=== PATIENT | male | born 1965 | race Hispanic/Latino ===

== ENCOUNTER 2017-10-17 17:22 | Inpatient (IN) | payer BC ==
[2017-10-17 17:31] VITALS: BMI 28.7
[2017-10-17] MEDS ORDERED: Alum-Mag Hydrox-Simethicone Susp (30 mL) PO STA (17:38)
--- NOTE | 2017-10-17 18:06 | ED PDOC ---
Arrival/HPI - General Chief Complaint: Chest Pain Time Seen by Provider: 10/17/17 17:32 Historian: Patient - History of Present Illness Narrative History of Present Illness (Text): 10/17/17 17:57 Taran Perez is a 52 year old male, whose past medical history includes CAD, diabetes, and hypertension, who presents to the emergency department complaining of epigastric discomfort at rest today. Patient describes that his symptoms had spread into his chest in a gurgling sensation and is now sensing a sharp, pulsating pain at the left side of his chest. Patient says that his symptoms are moderate in severity, however he is concerned because of his history of coronary stents. Patient states that he saw his PMD today and was referred to the emergency department. Patient denies any radiation of pain, arm pain, or any other complaints at this time. Time/Duration: 1-3 hours Symptom Onset: Gradual Symptom Course: Unchanged Activities at Onset: Light Context: Home Past Medical History - Provider Review Nursing Documentation Reviewed: Yes - Infectious Disease Hx of Infectious Diseases: None - Tetanus Immunization Tetanus Immunization: Unknown - Cardiac Other/Comment: cardiac stent - Pulmonary Hx Respiratory Disorders: No - Neurological Hx Neurological Disorder: No Other/Comment: numbness/tingling from knees to toes post back sx - HEENT Hx HEENT Disorder: Yes (wears glasses) - Renal Hx Renal Disorder: No - Endocrine/Metabolic Hx Diabetes Mellitus Type 2: Yes - Hematological/Oncological Hx Blood Disorders: No Hx Anemia: No (pt denies) - Integumentary Hx Dermatological Disorder: No - Musculoskeletal/Rheumatological Hx Falls: No - Gastrointestinal Hx Gastrointestinal Disorders: No - Genitourinary/Gynecological Hx Genitourinary Disorders: No - Psychiatric Hx Emotional Abuse: No Hx Physical Abuse: No Hx Substance Use: No - Surgical History Hx Appendectomy: Yes Hx Cardiac Catheterization: Yes Hx Cholecystectomy: Yes Hx Coronary Stent: Yes Other/Comment: Back surgery.Lumbar fusion - Anesthesia Hx Anesthesia Reactions: No Hx Malignant Hyperthermia: No - Suicidal Assessment Feels Threatened In Home Enviroment: No Family/Social History - Physician Review Nursing Documentation Reviewed: Yes Family/Social History: No Known Family HX Smoking Status: Never Smoked Hx Alcohol Use: No Hx Substance Use: No Hx Substance Use Treatment: No Allergies/Home Meds Allergies/Adverse Reactions: Allergies No Known Allergies Allergy (Verified 02/26/15 14:34) Home Medications: Home Meds Medication Instructions Recorded Confirmed Metformin HCl [Metformin] 1,000 mg PO BID 04/25/12 10/17/17 Aspirin [Ecotrin] 81 mg PO DAILY 10/17/17 10/17/17 Glipizide [Glipizide ER] 10 mg PO BID 10/17/17 10/17/17 SITagliptin [Januvia] 100 mg PO DAILY 10/17/17 10/17/17 Review of Systems - Physician Review All systems were reviewed & negative as marked: Yes - Review of Systems Constitutional: absent: Fevers, Night Sweats Eyes: absent: Vision Changes ENT: absent: Hearing Changes Respiratory: absent: SOB, Cough Cardiovascular: Chest Pain Gastrointestinal: Abdominal Pain (abdominal discomfort). absent: Diarrhea, Nausea, Vomiting Genitourinary Male: absent: Dysuria, Frequency Musculoskeletal: absent: Arthralgias Skin: absent: Rash, Pruritis Neurological: absent: Headache, Dizziness Endocrine: absent: Diaphoresis Hemo/Lymphatic: absent: Adenopathy Psychiatric: absent: Anxiety, Depression Physical Exam Vital Signs Reviewed: Yes Vital Signs Temp Pulse Resp BP Pulse Ox 10/17/17 18:34 73 22 110/73 97 10/17/17 17:22 99.1 F 80 18 133/78 97 Temperature: Afebrile Blood Pressure: Normal Pulse: Regular Respiratory Rate: Normal Appearance: Positive for: Well-Appearing, Non-Toxic, Comfortable Pain Distress: None Mental Status: Positive for: Alert and Oriented X 3 - Systems Exam Head: Present: Atraumatic, Normocephalic Pupils: Present: PERRL Extroacular Muscles: Present: EOMI Conjunctiva: Present: Normal Mouth: Present: Moist Mucous Membranes Neck: Present: Normal Range of Motion Respiratory/Chest: Present: Clear to Auscultation, Good Air Exchange. No: Respiratory Distress, Accessory Muscle Use Cardiovascular: Present: Regular Rate and Rhythm, Normal S1, S2. No: Murmurs Abdomen: Present: Normal Bowel Sounds. No: Tenderness, Distention, Peritoneal Signs Back: Present: Normal Inspection Upper Extremity: Present: Normal Inspection. No: Cyanosis, Edema Lower Extremity: Present: Normal Inspection. No: Edema Neurological: Present: GCS=15, CN II-XII Intact, Speech Normal Skin: Present: Warm, Dry, Normal Color. No: Rashes Psychiatric: Present: Alert, Oriented x 3, Normal Insight, Normal Concentration Medical Decision Making ED Course and Treatment: 10/17/17 18:07 Impression: 52 year old male complaining of epigastric discomfort and chest pain today. Plan: -- EKG -- Labs -- Maalox -- Reassess and disposition Progress Notes: - Lab Interpretations Lab Results: 10/17/17 17:30 10/17/17 17:30 Lab Results 10/17/17 17:30: Sodium 139, Potassium 4.1, Chloride 101, Carbon Dioxide 25, Anion Gap 18, BUN 22 H, Creatinine 0.8, Est GFR ( Amer) > 60, Est GFR ( Non-Af Amer) > 60, Random Glucose 141 H, Calcium 10.1, Total Bilirubin 0.8, AST 29, ALT 39, Alkaline Phosphatase 66, Troponin I < 0.01, Total Protein 7.7, Albumin 4.5, Globulin 3.2, Albumin/Globulin Ratio 1.4 10/17/17 17:30: WBC 6.9 D, RBC 5.40, Hgb 15.9, Hct 44.7, MCV 82.8, MCH 29.4, MCHC 35.6, RDW 13.4, Plt Count 184, MPV 9.4, Gran % 68.0, Lymph % (Auto) 24.9, Dickenson % (Auto) 5.4, Eos % (Auto) 1.6, Baso % (Auto) 0.1, Gran # 4.68, Lymph # ( Auto) 1.7, Dickenson # (Auto) 0.4, Eos # (Auto) 0.1, Baso # (Auto) 0.01 I have reviewed the lab results: Yes - RAD Interpretation Radiology Orders: 10/17/17 18:46 CHEST PORTABLE [RAD] Stat - Medication Orders Current Medication Orders: Discontinued Medications Al Hydrox/Mg Hydrox/Simethicone (Maalox Plus 30 Ml) 30 ml PO STAT STA Stop: 10/17/17 17:39 Last Admin: 10/17/17 18:12 Dose: 30 ml - Scribe Statement The provider has reviewed the documentation as recorded by the Smithibcarly[facility] Fam Provider Scribe Attestation: All medical record entries made by the Scribe were at my direction and personally dictated by me. I have reviewed the chart and agree that the record accurately reflects my personal performance of the history, physical exam, medical decision making, and the department course for this patient. I have also personally directed, reviewed, and agree with the discharge instructions and disposition. Disposition/Present on Arrival - Present on Arrival Any Indicators Present on Arrival: No History of DVT/PE: No History of Uncontrolled Diabetes: No Urinary Catheter: No History of Decub. Ulcer: No History Surgical Site Infection Following: None - Disposition Have Diagnosis and Disposition been Completed?: Yes Diagnosis: Chest pain, Coronary insufficiency Disposition: HOSPITALIZED Disposition Time: 18:50 Patient Plan: Observation Condition: STABLE Discharge Instructions (ExitCare): Chest Pain (ED) Referrals: Nura MORALES,Haresh Bennett MD [Primary Care Provider] - Follow up with primary Forms: [employer] ([place])
[2017-10-17 18:25] LABS: BASO # 0.01 K/mm3 (0.0-2.0); BASO % 0.1 % (0.0-3.0); EOS # 0.1 (0.0-0.7); EOS % 1.6 % (1.5-5.0); GRAN # 4.68 (1.4-6.5); HEMOGLOBIN 15.9 g/dL (14.0-18.0); LYMPH # 1.7 (1.2-3.4); LYMPH % 24.9 % (22.0-35.0); MEAN CELL VOLUME 82.8 fl (80.0-105.0); MEAN CORPUSCULAR HEMOGLOBIN 29.4 pg (25.0-35.0); MEAN CORPUSCULAR HGB CONC 35.6 g/dl (31.0-37.0); MEAN PLATELET VOLUME 9.4 fl (7.0-11.0); MONO # 0.4 (0.1-0.6); MONO % 5.4 % (1.0-6.0); RBC 5.4 10^6/uL (3.5-6.1); RED CELL DISTRIBUTION WIDTH 13.4 % (11.5-14.5); WHITE BLOOD COUNT 6.9 10^3/ul (4.5-11.0)
[2017-10-17 18:29] LABS: ALB/GLOB RATIO 1.4 (1.1-1.8); ALBUMIN 4.5 g/dL (3.0-4.8); ALT/SGPT 39 U/L (7-56); AST/SGOT 29 U/L (17-59); BLOOD UREA NITROGEN 22 mg/dL (7-21); CALCIUM 10.1 mg/dL (8.4-10.5); GFR AFRICAN-AMERICAN > 60; GFR NON-AFRICAN AMERICAN > 60
[2017-10-17 18:40] LABS: TROPONIN I < 0.01 ng/mL
[2017-10-17] MEDS ORDERED: Sodium Chloride 0.9% 1,000 ML IV SCH (19:15)
[2017-10-17] MEDS ORDERED: Influenza Vaccine 60 mcg/0.5 mL SYR (4YR UP) IM ONE (22:24)
[2017-10-18 06:31] LABS: BASO # 0.01 K/mm3 (0.0-2.0); BASO % 0.2 % (0.0-3.0); EOS # 0.2 (0.0-0.7); EOS % 3.6 % (1.5-5.0); GRAN # 3.05 (1.4-6.5); GRAN % 57.8 % (50.0-68.0); HEMOGLOBIN 15.2 g/dL (14.0-18.0); LYMPH # 1.6 (1.2-3.4); LYMPH % 29.5 % (22.0-35.0); MEAN CELL VOLUME 83.5 fl (80.0-105.0); MEAN CORPUSCULAR HEMOGLOBIN 29.1 pg (25.0-35.0); MEAN CORPUSCULAR HGB CONC 34.9 g/dl (31.0-37.0); MEAN PLATELET VOLUME 9.6 fl (7.0-11.0); MONO # 0.5 (0.1-0.6); MONO % 8.9 % (1.0-6.0); RBC 5.22 10^6/uL (3.5-6.1); RED CELL DISTRIBUTION WIDTH 13.4 % (11.5-14.5); WHITE BLOOD COUNT 5.3 10^3/ul (4.5-11.0)
[2017-10-18 06:46] LABS: ALB/GLOB RATIO 1.4 (1.1-1.8); ALBUMIN 3.9 g/dL (3.0-4.8); ALT/SGPT 40 U/L (7-56); AST/SGOT 28 U/L (17-59); BLOOD UREA NITROGEN 19 mg/dL (7-21); CALCIUM 9.4 mg/dL (8.4-10.5); GFR AFRICAN-AMERICAN > 60; GFR NON-AFRICAN AMERICAN > 60; HDL CHOLESTEROL 33 mg/dL (29-60)
[2017-10-18 06:54] LABS: TROPONIN I < 0.01 ng/mL
[2017-10-18 06:57] LABS: LDL CHOLESTEROL 99 mg/dL (0-129)
[2017-10-18] MEDS ORDERED: Enoxaparin 100 mg Syringe SC ONE (07:47)
--- NOTE | 2017-10-18 08:25 | CARD ---
APPROVED REPORT EKG Measurement Heart [id number] <Conclusion> Normal sinus rhythm Normal ECG
--- NOTE | 2017-10-18 09:57 | RAD ---
HISTORY: cp COMPARISON: 02/26/2015 FINDINGS: LUNGS: No active pulmonary disease. PLEURA: No significant pleural effusion identified, no pneumothorax apparent. CARDIOVASCULAR: Normal. OSSEOUS STRUCTURES: No significant abnormalities. VISUALIZED UPPER ABDOMEN: Normal. OTHER FINDINGS: None. IMPRESSION: No active disease.
--- NOTE | 2017-10-18 10:47 | CON ---
DATE: 10/18/2017 CARDIOLOGY CONSULTATION HISTORY OF PRESENT ILLNESS: The patient is a 52-year-old male with a history of PTCA and stents in [place] and suffers from hypercholesterolemia, who presents with substernal chest discomfort occurring at rest. The patient is still with a few intermittent episodes. No shortness of breath noted. Negative diabetes mellitus. Negative hypertension. SOCIAL HISTORY: The patient does not smoke. REVIEW OF SYSTEMS: Fourteen-point review of systems was reviewed in detail. No additional cardiac symptoms were noted. PHYSICAL EXAMINATION: VITAL SIGNS: Blood pressure is 120/71, the heart rate is in the 60s. NECK: Negative JVD. LUNGS: Without rales. HEART: Reveals S1, S2. EXTREMITIES: Without edema. LABORATORY DATA: EKG is unremarkable. Troponins are negative x2. Hemoglobin is normal. Glucose is 153. IMPRESSION: 1. Unstable angina. 2. Coronary artery disease. 3. History of percutaneous transluminal coronary angioplasty and stent. 4. Borderline diabetes mellitus. 5. Hypercholesterolemia. PLAN: Given these findings, I have discussed the therapeutic options with the patient in detail. We will obtain another troponin later today. We will start the patient on Plavix. The patient is agreeable to cardiac catheterization in the morning. Abdulkadir Rivera MD
[2017-10-18] MEDS: Insulin Reg-MEDIUM-Coverage SC SCH ×3 (11:57→22:18)
--- NOTE | 2017-10-18 19:51 | HP ---
HISTORY OF PRESENT ILLNESS: The patient is a 52 year old man with a past medical history of CAD s/p PCI with stent placement, hyperlipidemia, NIDDM and diet-controlled HTN who presented for evaluation of a 1-2 week history of intermittent, substernal squeezing chest tightness. The patient reports that approximately 2 weeks ago he experienced a "pin pricking" sensation to his left costal margin which radiated below his left breast. Over the course of the next several days he reported intermittent squeezing and a "spasming" sensation to his chest that occurred sporadically and was not associated with exertion. He denied palpitations, diaphoresis or dyspnea associated with the symptoms. Given the increase in frequency of his symptoms and his known underlying CAD, he presented to his PMD for evaluation. Physical examination at his PMD's office disclosed no abnormalities but due to the nature of his symptoms and his medical history, he was advised to go to the ED for admission for further cardiac workup. Upon arrival to the ED he was noted to be afebrile and hemodynamically stable. An initial EKG was unremarkable and an initial troponin was also negative. The patient was admitted to the telemetry jaramillo for continued monitoring and for evaluation by his tube sizer operator Dr. Rivera. PAST MEDICAL HISTORY: As per HPI, also lumbosacral radiculopathy secondary to degenerative disk disease. PAST SURGICAL HISTORY: Diskectomy and laminectomy with spinal fusion. ALLERGIES: NKDA. MEDICATIONS: Aspirin 81 mg p.o. daily, Lipitor 40 mg p.o. daily, Metformin 1000 mg p.o. b.i.d., Januvia 100 mg p.o. daily, Glipizide 10 mg p.o. b.i.d. FAMILY HISTORY: Noncontributory. SOCIAL HISTORY: The patient reports a former smoking history, but quit several years ago. He reports social alcohol use and denies illicit drug abuse. REVIEW OF SYSTEMS: A 14-point review of systems is negative except as per HPI. PHYSICAL EXAMINATION VITAL SIGNS: Temperature 97.6, pulse 64, blood pressure 120/71, respiratory rate 18, oxygen saturation 97% on room air. GENERAL: No apparent distress. HEENT: PERRL. EOMI. No scleral icterus. No conjunctival pallor. NECK: Supple with full range of motion. No JVD. No bruits. LUNGS: Clear to auscultation. CARDIOVASCULAR: Regular rate and rhythm. Normal S1 and S2. No murmurs. ABDOMEN: Normal active bowel sounds. Soft, nontender, nondistended. EXTREMITIES: No edema. NEUROLOGIC: Awake, alert, and oriented x3. No focal motor deficits. LABORATORY DATA: CBC reviewed and unremarkable. CMP reviewed and unremarkable. Troponin less than 0.01 x2 sets. Cholesterol 163, triglycerides 138, LDL 99, HDL 33. ASSESSMENT: The patient is a 52 year old man with a past medical history of CAD s/p PCI with stent placement, hyperlipidemia, NIDDM and diet-controlled hypertension who presented for evaluation of 1-2 week history of substernal chest discomfort and was admitted for management of unstable angina. PLAN: 1. Unstable angina. The patient has had 2 unremarkable cardiac enzymes. He does endorse persistent chest discomfort. After discussion with Dr. Rivera, the patient will be scheduled for cardiac catheterization tomorrow. He will be loaded with Plavix 300 mg and Lovenox 90 mg. Continue aspirin 81 mg p.o. daily and start Plavix 75 mg p.o. daily. 2. CAD s/p PCI with stent placement. Continue with care as per #1. The patient is pending cardiac catheterization tomorrow morning. 3. Hyperlipidemia. The patient is on Simvastatin at home however this is not on formulary. Start Lipitor 40 mg p.o. daily. 4. Hypertension, diet-controlled. Blood pressure remains controlled off antihypertensives. 5. NIDDM. Start medium dose insulin sliding scale and fingersticks before every meal and at bedtime. Resume metformin 1000 mg p.o. b.i.d. 6. Prophylaxis. GI prophylaxis not indicated as the patient is eating. DVT prophylaxis not indicated as patient is ambulatory. CODE STATUS: Full code. Haresh Lyman MD [facility]
[2017-10-19 06:21] LABS: BASO # 0.02 K/mm3 (0.0-2.0); BASO % 0.4 % (0.0-3.0); EOS # 0.2 (0.0-0.7); EOS % 4.3 % (1.5-5.0); GRAN # 2.91 (1.4-6.5); GRAN % 56.4 % (50.0-68.0); HEMOGLOBIN 14.9 g/dL (14.0-18.0); LYMPH # 1.6 (1.2-3.4); LYMPH % 31.7 % (22.0-35.0); MEAN CELL VOLUME 83.8 fl (80.0-105.0); MEAN CORPUSCULAR HEMOGLOBIN 29.1 pg (25.0-35.0); MEAN CORPUSCULAR HGB CONC 34.7 g/dl (31.0-37.0); MEAN PLATELET VOLUME 9.3 fl (7.0-11.0); MONO # 0.4 (0.1-0.6); MONO % 7.2 % (1.0-6.0); RBC 5.12 10^6/uL (3.5-6.1); RED CELL DISTRIBUTION WIDTH 13.3 % (11.5-14.5); WHITE BLOOD COUNT 5.2 10^3/ul (4.5-11.0)
[2017-10-19 06:59] LABS: ALB/GLOB RATIO 1.4 (1.1-1.8); ALBUMIN 3.9 g/dL (3.0-4.8); ALT/SGPT 40 U/L (7-56); AST/SGOT 28 U/L (17-59); BLOOD UREA NITROGEN 20 mg/dL (7-21); CALCIUM 9.2 mg/dL (8.4-10.5); GFR AFRICAN-AMERICAN > 60; GFR NON-AFRICAN AMERICAN > 60
[2017-10-19] MEDS: Insulin Reg-MEDIUM-Coverage SC SCH ×4 (07:32→22:15)
[2017-10-19] MEDS ORDERED: Midazolam 2 MG/2 ML VIAL ONE ×2 (10:13→12:14)
[2017-10-19] MEDS ORDERED: Lidocaine 2% Inj (20ml) ONE (10:13)
[2017-10-19] MEDS ORDERED: Iohexol 350mgl/ml 50 ML ONE (10:14)
[2017-10-19] MEDS ORDERED: HEPARIN SODIUM/NS 2,000 ML IV ONE (10:14)
[2017-10-19] MEDS ORDERED: Iodixanol 320 MG/ML 200 ML BOTTLE IV ONE (10:14)
[2017-10-19] MEDS ORDERED: Sodium Chloride 0.9% 1,000 ML IV SCH (13:15)
--- NOTE | 2017-10-19 19:29 | PN ---
SUBJECTIVE: The patient was seen and examined at bedside on the telemetry jaramillo. No acute events overnight. He remains afebrile and hemodynamically stable. This morning he reports persistent chest discomfort that is unchanged in nature and is pending cardiac catheterization with Dr. Rivera. OBJECTIVE: VITAL SIGNS: Temperature 98.5, pulse 57, blood pressure 107/58, respiratory rate 18, oxygen saturation 98% on room air. GENERAL: In no apparent distress. HEENT: PERRL, EOMI. No scleral icterus. No conjunctival pallor. NECK: Supple with full range of motion. No JVD. No bruits. LUNGS: Clear to auscultation. CARDIOVASCULAR: Regular rate and rhythm. Normal S1 and S2. No murmurs. ABDOMEN: Normoactive bowel sounds. Soft, nontender and nondistended. EXTREMITIES: No edema. NEUROLOGIC: Awake, alert and oriented x3. No focal motor deficits. LABORATORY DATA: CBC reviewed and unremarkable. CMP reviewed and unremarkable. ASSESSMENT: The patient is a 52 year old man with a past medical history of CAD s/p PCI with stent placement, hyperlipidemia, NIDDM and diet-controlled hypertension who presented for evaluation of a 1-2 week history of substernal chest discomfort and who was admitted for management of unstable angina and is presently pending cardiac catheterization. PLAN 1. Unstable angina. The patient remains with unchanged chest discomfort and is pending cardiac catheterization with Dr. Rivera. Continue Aspirin 81 mg p.o. daily and Plavix 75 mg p.o. daily. 2. CAD s/p PCI with stent placement. Continue with care as per #1. Additionally, continue Lipitor 40 mg p.o. daily. 3. Hyperlipidemia. Continue Lipitor 40 mg p.o. daily. 4. Ekr-drjidmv-courdogiw diabetes mellitus. Continue with medium-dose insulin sliding scale and Metformin 1000 mg p.o. b.i.d. 5. Hypertension, diet controlled. Blood pressure remains satisfactory. 6. Prophylaxis. GI prophylaxis not indicated as the patient is eating. DVT prophylaxis not indicated as the patient is ambulatory. CODE STATUS: Full code. Haresh Lyman MD [facility]
--- NOTE | 2017-10-19 21:47 | CARDCATH ---
PROCEDURE DATE: 10/19/2017 CARDIAC CATHETERIZATION AND PTCA HISTORY: The patient is a 52-year-old male, who presents with recurrent substernal angina including some episodes at rest. The patient's past medical history includes a history of multivessel PTCA in the past. He suffers from diabetes mellitus as well as hypercholesterolemia. The patient had previous stents placed in [place] in the past. Because of his progressive symptoms, cardiac catheterization was recommended. PROCEDURE: Left heart catheterization with coronary arteriography and left ventriculogram followed by PTCA and stent of the circumflex artery and diagonal vessel of the LAD with drug-eluting stents. The right femoral artery was cannulated with 6-[place] sheath. There were no complications. I performed moderate sedation, which included the presence of an independent trained observer that assisted in monitoring the patient's level of consciousness and physiologic status. After administration of Versed and fentanyl, my intra service time was 30 minutes. The findings on catheterization revealed a left ventricle that was preserved, estimated ejection fraction of 55%. His coronary anatomy revealed a right dominant circulation. The RCA revealed multiple stents that were patent. No critical lesions were noted. Left main artery was unremarkable. The circumflex artery revealed a 99% stenosis in the midportion. The LAD was diffusely diseased with multiple patent stents. However, in the midportion, there was an eccentric 60-70% stenosis noted. At the takeoff of the lesion, there was a diagonal vessel, which showed a 99% stenosis. The patient was started on intravenous Angiomax. Under fluoroscopic guide, the guiding catheter was placed in the ostium of the left main artery. An 0.014 ATW wire was used to cross the lesion in the circumflex artery. A 2.0 balloon was utilized to predilate the lesion. A 3.5 x 12 mm drug-eluting stent was placed and deployed at 14 atmospheres of pressure. Repeat coronary arteriography revealed an excellent result with no residual stenosis. An ATW wire was then placed into the LAD and into the diagonal vessel past the critical lesion. A 2.0 balloon was utilized to predilate the lesion. A 2.5 x 12 mm drug-eluting stent was placed and deployed at 11 atmospheres of pressure. After balloon deflation and removal, repeat coronary arteriography revealed an excellent result with no residual stenosis and [place] III flow. The patient tolerated the procedure well. Angio-Seal was used to close the femoral artery site. In summary, the procedure was successful for PTCA and stent of a critically stenosed circumflex artery with a drug-eluting stent. Successful PTCA and stent of diagonal vessel with a drug-eluting stent. Cardiac catheterization reveals normal LV function. Cardiac catheterization reveals patent stents in all three vessels including new lesions in the circumflex artery and diagonal vessel and LAD. Given these findings, the patient will need to remain on aspirin indefinitely and Plavix for at least a year and undergo a strict cardiac risk reduction program. We will bring him back next week for PTCA and stent of the LAD. Abdulkadir Rivera MD
--- NOTE | 2017-10-19 23:23 | CP.PCM.PN ---
Subjective - Date & Time of Evaluation Date of Evaluation: 10/19/17 Time of Evaluation: 23:23 - Subjective Subjective: Patient was seen at bedside. He complained of chest heaviness for 40 minutes, no radiation, was in left parasternal area, no nausea, sweating, palpitation or sob. He is S/P cardiac cath. Had drug eluting stent placed in circumflex , diagonal vesse. LAD has stenosis and needs stent placement next week. This 52 year old white male was admitted with substernal squeezing chest pain. Has PMH of NIDDM, HLD, CAD, HTN. Objective - Vital Signs/Intake and Output Vital Signs (last 24 hours): Temp Pulse Resp BP Pulse Ox 97.7 F 72 18 138/74 98 10/19/17 18:23 10/19/17 18:23 10/19/17 18:23 10/19/17 18:23 10/19/17 06:00 - Medications Medications: Current Medications Aspirin (Ecotrin) 81 mg PO DAILY [facility] Atorvastatin Calcium (Lipitor) 40 mg PO DAILY [facility] Last Admin: 10/19/17 16:57 Dose: 40 mg Clopidogrel Bisulfate (Plavix) 75 mg PO DAILY [facility] Last Admin: 10/19/17 10:04 Dose: Not Given Insulin Human Regular (Humulin R Med) 0 units SC ACHS [facility] PRN Reason: Protocol Last Admin: 10/19/17 16:57 Dose: 3 units Metformin HCl (Glucophage) 1,000 mg PO BID [facility] Last Admin: 10/19/17 17:00 Dose: Not Given Tramadol HCl (Ultram) 50 mg PO Q6 PRN PRN Reason: Pain, moderate (4-7) Last Admin: 10/19/17 14:01 Dose: 50 mg - Labs Labs: Most Recent Lab Values WBC 5.2 10^3/ul (4.5-11.0) 10/19/17 05:30 RBC 5.12 10^6/uL (3.5-6.1) 10/19/17 05:30 Hgb 14.9 g/dL (14.0-18.0) 10/19/17 05:30 Hct 42.9 % (42.0-52.0) 10/19/17 05:30 MCV 83.8 fl (80.0-105.0) 10/19/17 05:30 MCH 29.1 pg (25.0-35.0) 10/19/17 05:30 MCHC 34.7 g/dl (31.0-37.0) 10/19/17 05:30 RDW 13.3 % (11.5-14.5) 10/19/17 05:30 Plt Count 169 10^3/uL (120.0-450.0) 10/19/17 05:30 MPV 9.3 fl (7.0-11.0) 10/19/17 05:30 Gran % 56.4 % (50.0-68.0) 10/19/17 05:30 Lymph % (Auto) 31.7 % (22.0-35.0) 10/19/17 05:30 [place] % (Auto) 7.2 % (1.0-6.0) H 10/19/17 05:30 Eos % (Auto) 4.3 % (1.5-5.0) 10/19/17 05:30 Baso % (Auto) 0.4 % (0.0-3.0) 10/19/17 05:30 Gran # 2.91 (1.4-6.5) 10/19/17 05:30 Lymph # (Auto) 1.6 (1.2-3.4) 10/19/17 05:30 [place] # (Auto) 0.4 (0.1-0.6) 10/19/17 05:30 Eos # (Auto) 0.2 (0.0-0.7) 10/19/17 05:30 Baso # (Auto) 0.02 K/mm3 (0.0-2.0) 10/19/17 05:30 Sodium 138 mmol/L (132-148) 10/19/17 05:30 Potassium 4.0 mmol/L (3.6-5.0) 10/19/17 05:30 Chloride 101 mmol/L (98-107) 10/19/17 05:30 Carbon Dioxide 26 mmol/L (21-33) 10/19/17 05:30 Anion Gap 15 (10-20) 10/19/17 05:30 BUN 20 mg/dL (7-21) 10/19/17 05:30 Creatinine 0.9 mg/dl (0.8-1.5) 10/19/17 05:30 Est GFR ( Amer) > 60 10/19/17 05:30 Est GFR (Non-Af Amer) > 60 10/19/17 05:30 POC Glucose (mg/dL) 242 mg/dL (65-110) H 10/19/17 21:32 Random Glucose 204 mg/dL (70-110) H 10/19/17 05:30 Hemoglobin A1c 7.5 % (4.2-6.5) H 10/18/17 05:15 Calcium 9.2 mg/dL (8.4-10.5) 10/19/17 05:30 Total Bilirubin 0.7 mg/dL (0.2-1.3) 10/19/17 05:30 AST 28 U/L (17-59) 10/19/17 05:30 ALT 40 U/L (7-56) 10/19/17 05:30 Alkaline Phosphatase 68 U/L (38-126) 10/19/17 05:30 Troponin I 0.20 ng/mL H* D 10/19/17 22:40 Total Protein 6.6 g/dL (5.8-8.3) 10/19/17 05:30 Albumin 3.9 g/dL (3.0-4.8) 10/19/17 05:30 Globulin 2.8 gm/dL 10/19/17 05:30 Albumin/Globulin Ratio 1.4 (1.1-1.8) 10/19/17 05:30 Triglycerides 138 mg/dL (35-160) 10/18/17 05:15 Cholesterol 163 mg/dL (130-200) 10/18/17 05:15 LDL Cholesterol Direct 99 mg/dL (0-129) 10/18/17 05:15 HDL Cholesterol 33 mg/dL (29-60) 10/18/17 05:15 - Constitutional Appears: Well, No Acute Distress - Head Exam Head Exam: ATRAUMATIC, NORMAL INSPECTION, NORMOCEPHALIC - Eye Exam Eye Exam: Normal appearance - ENT Exam ENT Exam: Normal External Ear Exam - Neck Exam Neck Exam: Normal Inspection - Respiratory Exam Respiratory Exam: NORMAL BREATHING PATTERN - Cardiovascular Exam Cardiovascular Exam: REGULAR RHYTHM, +S1 (Normal.), +S2 (Normal.). absent: JVD - GI/Abdominal Exam GI & Abdominal Exam: absent: Distended - Rectal Exam Rectal Exam: Deferred - Extremities Exam Extremities Exam: Normal Inspection - Back Exam Back Exam: NORMAL INSPECTION - Neurological Exam Neurological Exam: Alert, Awake, Oriented x3 - Psychiatric Exam Psychiatric exam: Normal Affect, Normal Mood - Skin Skin Exam: Normal Color Assessment and Plan - Assessment and Plan (Free Text) Assessment: Chest pain. ACS. CAD. S/P cardiac catheterization. S/P Drug Eluting stent placement in Circumflex and diagonal vessel. LAD stenosis. HTN. HLD. NIDDM. Plan: EKG---->No acute changes. QIII. Troponin---> 0.20.---S/P catheterization. --- New ischemic, infarct event? SL NTG. Oxygen. 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 Protonix. Morphine sulfate prn. Placed call to x 2.
[2017-10-20] MEDS ORDERED: Pantoprazole 40 mg EC Tab PO ONE (00:49)
[2017-10-20] MEDS ORDERED: Morphine 4 mg/ml ISec IVP STA (02:11)
[2017-10-20 06:11] LABS: BASO # 0.01 K/mm3 (0.0-2.0); BASO % 0.2 % (0.0-3.0); EOS # 0.2 (0.0-0.7); EOS % 4.2 % (1.5-5.0); GRAN # 3.21 (1.4-6.5); GRAN % 55.9 % (50.0-68.0); LYMPH # 1.9 (1.2-3.4); LYMPH % 32.9 % (22.0-35.0); MEAN CELL VOLUME 83.5 fl (80.0-105.0); MEAN CORPUSCULAR HEMOGLOBIN 29.1 pg (25.0-35.0); MEAN CORPUSCULAR HGB CONC 34.8 g/dl (31.0-37.0); MEAN PLATELET VOLUME 9.2 fl (7.0-11.0); MONO # 0.4 (0.1-0.6); MONO % 6.8 % (1.0-6.0); RBC 5.16 10^6/uL (3.5-6.1); RED CELL DISTRIBUTION WIDTH 13.2 % (11.5-14.5); WHITE BLOOD COUNT 5.7 10^3/ul (4.5-11.0)
[2017-10-20 06:47] LABS: ALB/GLOB RATIO 1.3 (1.1-1.8); ALBUMIN 3.9 g/dL (3.0-4.8); ALT/SGPT 44 U/L (7-56); AST/SGOT 46 U/L (17-59); BLOOD UREA NITROGEN 15 mg/dL (7-21); CALCIUM 9.2 mg/dL (8.4-10.5); GFR AFRICAN-AMERICAN > 60; GFR NON-AFRICAN AMERICAN > 60
[2017-10-20] MEDS ORDERED: Nitroglycerin 2% Ointment Foilpak UD TOP PRN (08:19)
[2017-10-20] MEDS: Insulin Reg-MEDIUM-Coverage SC SCH ×4 (09:08→21:24)
--- NOTE | 2017-10-20 09:13 | CARD ---
APPROVED REPORT EKG Measurement Heart [id number] [place] [id number] <Conclusion> Sinus rhythm with 1st degree AV block Otherwise normal ECG
--- NOTE | 2017-10-20 09:46 | CARD ---
APPROVED REPORT EKG Measurement Heart [id number] [place] [id number] <Conclusion> Normal sinus rhythm Normal ECG
--- NOTE | 2017-10-20 10:02 | CARD ---
APPROVED REPORT EKG Measurement Heart [id number] [place] 196P49 [id number] <Conclusion> Normal sinus rhythm Normal ECG
[2017-10-20] MEDS ORDERED: Lidocaine 2% Inj (20ml) ONE (10:03)
[2017-10-20] MEDS ORDERED: Phenylephrine 10 mg/ml Inj ONE (10:03)
[2017-10-20] MEDS ORDERED: Iodixanol 320 MG/ML 200 ML BOTTLE IV ONE (10:04)
[2017-10-20] MEDS ORDERED: Iodixanol 320 MG/ML 100 ML BOTTLE IV ONE (10:04)
[2017-10-20] MEDS ORDERED: Nitroglycerin 50mg in D5W 50 MG/250 ML BOTTLE IV ONE (10:04)
[2017-10-20] MEDS ORDERED: Midazolam 2 MG/2 ML VIAL ONE ×2 (10:04→10:49)
[2017-10-20] MEDS ORDERED: Iohexol 350mgl/ml 50 ML ONE (10:04)
[2017-10-20] MEDS ORDERED: HEPARIN SODIUM/NS 2,000 ML IV ONE (10:05)
[2017-10-20] MEDS ORDERED: Adenosine 90 mg/30mL IV ONE (10:06)
--- NOTE | 2017-10-20 11:07 | PN ---
DATE: 10/20/2017 CARDIOLOGY FOLLOWUP SUBJECTIVE: The patient states he had chest pain last night. EKG was done, which showed no acute changes. The troponin was 0.2. Given these findings, we will move his scheduled angioplasty of the LAD from Monday to today. We will bring him down for cardiac catheterization to visualize his stents placed yesterday and plan on stenting his mid LAD. Abdulkadir Rivera MD
--- NOTE | 2017-10-20 11:08 | CARD ---
APPROVED REPORT EKG Measurement Heart [id number] [place] 198P38 [id number] <Conclusion> Normal sinus rhythm Q III, Small Q AVF.
[2017-10-20] MEDS ORDERED: Sodium Chloride 0.9% 1,000 ML IV SCH (12:30)
--- NOTE | 2017-10-20 13:26 | PN ---
DATE: SUBJECTIVE: The patient is lying in bed, in room 260, bed 2, has no complaints at this very moment. The patient did experience chest pain yesterday evening and night, received multiple doses of nitroglycerine, also some IV pain medications. PHYSICAL EXAMINATION: VITAL SIGNS: Currently: Temperature of 98.6, pulse rate of 60, blood pressure 124/80, respiratory rate of 20 with an O2 saturation of 96% on room air. HEENT: NITA. EOMI. NECK: Supple with full range of motion. There are no bruits present. LUNGS: Clear bilaterally. HEART: Shows a regular rate and rhythm. ABDOMEN: Soft, it is nontender. There is no organomegaly. Bowel sounds are normoactive. EXTREMITIES: Show no deformities and no edema with a poor range of motion. NEUROLOGIC: There are no focal motor deficits. LABORATORY DATA: H and H 15.0 and 43.1. SMA-23 is normal with the exception of a glucose 180. Of note, the patient had a cath with stent placements and given his chest pain yesterday evening and at night, the patient will be kept in our hospital. Patient is scheduled for repeat cath and stents on Monday. DIAGNOSES: 1. Coronary artery disease. 2. Diabetes mellitus. Omkar Lyman MD
[2017-10-20] MEDS ORDERED: Oxycodone/Acetaminophen 5/325 mg Tab PO PRN (15:28)
--- NOTE | 2017-10-20 15:31 | CARD ---
APPROVED REPORT EKG Measurement Heart [id number] [place] 192P59 [id number] <Conclusion> Normal sinus rhythm Normal ECG
[2017-10-20 17:41] VITALS: RESP 18
--- NOTE | 2017-10-20 21:07 | CARDCATH ---
PROCEDURE: PTCA and stent of an LAD and diagonal vessel. The left femoral artery was cannulated with a 6-Turkmen sheath. There were no complications. Initial coronary arteriography revealed RCA that was a dominant vessel with no critical lesions. The stents that were placed in the circumflex artery as well as in the diagonal vessel were patent. The LAD in the midportion at the takeoff of the diagonal vessel revealed an eccentric 70% stenoses. The patient was started on intravenous Angiomax. On the fluoroscopic guide, 2 ATW wires were placed, one in the diagonal vessel, one in the LAD. A 3.0 x 9 mm drug-eluting stent was placed and deployed at 14 ounces of pressure in the LAD. After balloon deflation removal, postdilatation was performed with a 3.5 balloon. There was pinching of the ostium of the diagonal vessel from the stent. The wire was then brought back and rewired through the stent into the diagonal vessel. A 2.0 followed by 2.5 balloon was then utilized to dilate the ostium of the diagonal vessel with an excellent result. Postdilatation in the LAD was performed with a 3.5 balloon. Angio-Seal was used to close the femoral artery site. The patient tolerated the procedure well. In summary, the procedure was successful for PTCA and stent of a critically stenosed mid LAD stenoses as well as the ostium of the diagonal vessel which took off from the LAD stent. Coronary arteriography revealed patent stents in the circumflex artery and the diagonal vessel that were placed yesterday. Given these findings, the patient will remain on aspirin indefinitely and Plavix for least a year and undergo a strict cardiac risk reduction program. Abdulkadir Rivera MD
[2017-10-21 06:22] VITALS: TEMP 98.3
[2017-10-21 07:18] LABS: BASO # 0.01 K/mm3 (0.0-2.0); BASO % 0.2 % (0.0-3.0); EOS # 0.2 (0.0-0.7); EOS % 3.6 % (1.5-5.0); GRAN # 3.74 (1.4-6.5); GRAN % 63.9 % (50.0-68.0); HEMOGLOBIN 15.1 g/dL (14.0-18.0); LYMPH # 1.4 (1.2-3.4); LYMPH % 24.6 % (22.0-35.0); MEAN CELL VOLUME 83.7 fl (80.0-105.0); MEAN CORPUSCULAR HEMOGLOBIN 29.3 pg (25.0-35.0); MEAN PLATELET VOLUME 9.6 fl (7.0-11.0); MONO # 0.5 (0.1-0.6); MONO % 7.7 % (1.0-6.0); RBC 5.15 10^6/uL (3.5-6.1); RED CELL DISTRIBUTION WIDTH 13.1 % (11.5-14.5); WHITE BLOOD COUNT 5.9 10^3/ul (4.5-11.0)
[2017-10-21 07:30] LABS: ALB/GLOB RATIO 1.3 (1.1-1.8); ALBUMIN 3.9 g/dL (3.0-4.8); ALT/SGPT 46 U/L (7-56); AST/SGOT 31 U/L (17-59); BLOOD UREA NITROGEN 16 mg/dL (7-21); CALCIUM 9.3 mg/dL (8.4-10.5); GFR AFRICAN-AMERICAN > 60; GFR NON-AFRICAN AMERICAN > 60; TROPONIN I 0.67 ng/mL
[2017-10-21] MEDS: Insulin Reg-MEDIUM-Coverage SC SCH (08:19)
[2017-10-21 09:11] VITALS: BP 112/66; PULSE 83; O2SAT 96
--- NOTE | 2017-10-21 11:47 | CARD ---
APPROVED REPORT EKG Measurement Heart [id number] [place] 188P65 [id number] <Conclusion> Normal sinus rhythm Normal ECG
--- NOTE | 2017-10-21 15:07 | PN ---
DATE: REASON FOR DICTATION: Covering Dr. Abdulkadir Rivera. Status post PTCA, troponin positive, post PTCA SUBJECTIVE: The patient denies any chest pain, shortness of breath or any palpitations. OBJECTIVE GENERAL: Not in apparent distress. VITAL SIGNS: Temperature afebrile, heart rate 83, blood pressure 112/66. HEENT: PERRLA. Extraocular muscles are intact. NECK: Supple. No carotid bruit or thyromegaly. CHEST: Clear to auscultation. HEART: S1, S2 regular. ABDOMEN: Soft. EXTREMITIES: Clubbing and cyanosis, negative. LABORATORY DATA: Blood workup as follows: WBC 5.9, hemoglobin 15.1, hematocrit 43.1, platelet count 171,000. Chemistry shows sodium 140, potassium 4.3, chloride 103, carbon dioxide 26, anion gap of 13, BUN 16, creatinine 0.8. Troponin is 0.061. IMPRESSION: Unstable angina, status post multivessel percutaneous transluminal coronary angioplasty, percutaneous transluminal coronary angioplasty of right carotid artery on 10/19/2017, status post percutaneous transluminal coronary angioplasty yesterday with diagonal and left anterior descending 1; asymptomatic EKG, essentially normal. Troponin positive secondary to intervention. RECOMMENDATIONS: The patient is okay to be discharged. Followup with Dr. Rivera. Continue aspirin. Continue Plavix. Discussed with the nurse, taking care of that. We will get a stat EKG and if EKG is in the normal, it will be okay to be discharged. Charles Farmer MD
--- NOTE | 2017-10-22 10:06 | DS ---
SUBJECTIVE: The patient was admitted for chest pain initially. He was placed a stent and was doing well. On the day prior to discharge, the patient went back to the labor relations representative because the night prior he had some chest pain. The patient was again catheterized and a stent was put into the LAD. He is currently sitting up in his room with no acute complaints and there were no acute events overnight. PHYSICAL EXAMINATION: VITAL SIGNS: Temperature of 98.3, pulse rate is 68, blood pressure 114/79, respiratory rate of 18 with an O2 saturation of 98% on room air. HEENT: Negative. NECK: Supple with a full range of motion. LUNGS: Clear bilaterally. HEART: Regular rate and rhythm. No murmurs, rubs or gallops. ABDOMEN: Benign. NEUROLOGICAL: There are no focal motor deficits. LABORATORY DATA: CBC is entirely within normal limits. Chemistry is normal with the exception of a glucose of 200, and troponin of 0.67. ASSESSMENT AND PLAN: The patient at this point will be discharged home. Follow up with Dr. Abdulkadir Rivera and myself next week. New medications added are atorvastatin 40 a day and Plavix 75 mg a day as well as 81 mg aspirin a day. He will continue his diabetic medications. DISCHARGE DIAGNOSES: 1. Coronary artery disease. 2. Diabetes mellitus. Omkar Lyman MD
== END 2017-10-21 11:55 | disposition home or self-care (01) | DRG 247 ==
LOC: ED 17:22 → ERH 18:46 → 2RNO 21:47 → OBSVTOIN 10-19 16:35 → 2RNO 10-20 12:07
PROVIDERS: ADMIT Student in an Organized Health Care Education/Training Program; ATTEND Student in an Organized Health Care Education/Training Program
PROC: 027135Z Dilation of Coronary Artery, Two Arteries with Two Drug-eluting Intraluminal Devices, Percutaneous Approach (ICD-10-PCS; principal; 2017-10-19)
PROC: 4A023N7 Measurement of Cardiac Sampling and Pressure, Left Heart, Percutaneous Approach (ICD-10-PCS; 2017-10-19)
PROC: B2111ZZ Fluoroscopy of Multiple Coronary Arteries using Low Osmolar Contrast (ICD-10-PCS; 2017-10-19)
PROC: B2151ZZ Fluoroscopy of Left Heart using Low Osmolar Contrast (ICD-10-PCS; 2017-10-19)
PROC: 027034Z Dilation of Coronary Artery, One Artery with Drug-eluting Intraluminal Device, Percutaneous Approach (ICD-10-PCS; 2017-10-20)
DX: I25.110 Atherosclerotic heart disease of native coronary artery with unstable angina pectoris (principal); E11.9 Type 2 diabetes mellitus without complications; E78.00 Pure hypercholesterolemia, unspecified; E78.5 Hyperlipidemia, unspecified; I10 Essential (primary) hypertension; Z79.02 Long term (current) use of antithrombotics/antiplatelets; Z79.84 Long term (current) use of oral hypoglycemic drugs; Z87.891 Personal history of nicotine dependence; Z98.1 Arthrodesis status; Z95.5 Presence of coronary angioplasty implant and graft; Z90.49 Acquired absence of other specified parts of digestive tract; R40.2412 Glasgow coma scale score 13-15, at arrival to emergency department

== ENCOUNTER 2017-10-24 08:18 | Observation (INO) | payer BC ==
[2017-10-24 08:23] VITALS: BMI 28.3
--- NOTE | 2017-10-24 08:54 | ED PDOC ---
Arrival/HPI - General Chief Complaint: Chest Pain Time Seen by Provider: 10/24/17 08:50 Historian: Patient - History of Present Illness Narrative History of Present Illness (Text): 10/24/17 08:45 52 year old male, whose past medical history includes diabetes and cardiac stents, who presents to the emergency department complaining of chest pain since one day and describes it as a burning sensation that is different from his reflux. Patient reports being d/c from the [facility] on Monday s/p cardiac stents x3 being placed. Patient denies any nausea, vomiting, diarrhea, abdominal pain, shortness of breath or other complaints. He is currently on Plavix. PMD: Dr. Lyman Hatchery Attendant: Dr. Rivera Time/Duration: 24 hours Symptom Onset: Gradual Quality: Burning Context: Home Past Medical History - Provider Review Nursing Documentation Reviewed: Yes - Infectious Disease Hx of Infectious Diseases: None - Tetanus Immunization Tetanus Immunization: Unknown - Cardiac Other/Comment: cardiac stent - Pulmonary Hx Respiratory Disorders: Yes Hx Sleep Apnea: Yes - Neurological Hx Neurological Disorder: No - HEENT Hx HEENT Disorder: Yes (wears glasses) - Renal Hx Renal Disorder: No - Endocrine/Metabolic Hx Diabetes Mellitus Type 2: Yes - Hematological/Oncological Hx Blood Disorders: No Hx Anemia: No (pt denies) - Integumentary Hx Dermatological Disorder: No - Musculoskeletal/Rheumatological Hx Arthritis: Yes Hx Back Pain: Yes Hx Falls: Yes Hx Herniated Disk: Yes - Gastrointestinal Hx Gastrointestinal Disorders: Yes Hx Gall Bladder Disease: Yes Hx Gastroesophageal Reflux: Yes Other/Comment: appendix, gall bladder removed - Genitourinary/Gynecological Hx Genitourinary Disorders: No - Psychiatric Hx Anxiety: Yes Hx Emotional Abuse: No Hx Panic Disorder: Yes Hx Physical Abuse: No Hx Substance Use: No - Surgical History Hx Appendectomy: Yes Hx Cardiac Catheterization: Yes Hx Cholecystectomy: Yes Hx Coronary Stent: Yes Other/Comment: Back surgery.Lumbar fusion - Anesthesia Hx Anesthesia Reactions: No Hx Malignant Hyperthermia: No - Suicidal Assessment Feels Threatened In Home Enviroment: No Family/Social History - Physician Review Nursing Documentation Reviewed: Yes Family/Social History: Unknown Family HX Smoking Status: Former Smoker Hx Alcohol Use: Yes (socially) Hx Substance Use: No Hx Substance Use Treatment: No Allergies/Home Meds Allergies/Adverse Reactions: Allergies No Known Allergies Allergy (Verified 10/24/17 08:32) Home Medications: Home Meds Medication Instructions Recorded Confirmed Metformin HCl [Metformin] 1,000 mg PO BID 04/25/12 10/24/17 Aspirin [Ecotrin] 81 mg PO DAILY 10/17/17 10/24/17 Empagliflozin [Jardiance] 25 mg PO DAILY 10/17/17 10/24/17 Glipizide [Glipizide ER] 10 mg PO BID 10/17/17 10/24/17 SITagliptin [Januvia] 100 mg PO DAILY 10/17/17 10/24/17 Atorvastatin [Lipitor] 40 mg PO DAILY 10/21/17 10/24/17 Clopidogrel [Plavix] 75 mg PO DAILY 10/21/17 10/24/17 Review of Systems - Physician Review All systems were reviewed & negative as marked: Yes - Review of Systems Constitutional: absent: Fevers Respiratory: absent: SOB Cardiovascular: Chest Pain (burning sensation ) Physical Exam - Physical Exam Narrative Physical Exam (Text): Constitutional: No acute distress. Head: Normocephalic. Atraumatic. Eyes: PERRL. ENT: Moist mucous membranes. Neck: Supple. Cardiovascular: Regular rate. Chest: No tenderness. Respiratory: Clear to auscultation bilaterally. GI: Soft. Nontender. Nondistended. Back: No CVA tenderness. Musculoskeletal: No tenderness or swelling of extremities. Skin: No rash. Neurologic: Alert, no focal deficit. Vital Signs Reviewed: Yes Vital Signs Temp Pulse Resp BP Pulse Ox 10/24/17 08:32 98.6 F 69 18 142/75 96 Temperature: Afebrile Blood Pressure: Normal Pulse: Regular Respiratory Rate: Normal Appearance: Positive for: Well-Appearing, Non-Toxic, Comfortable Pain Distress: None Mental Status: Positive for: Alert and Oriented X 3 Medical Decision Making ED Course and Treatment: 10/24/17 Impression: 52 year old male unremarkable physical exam complaining of chest pain described as burning Plan: -- EKG -- Chest X-ray -- Labs -- Reassess and disposition Prior Visits: Notes and results from previous visits were reviewed. Patient was last seen in the emergency department on 10/19/2017 Progress Notes: 10/24/17 EKG: Ordered, reviewed, and independently interpreted the EKG. Rate : 70 BPM Rhythm : NSR Interpretation : No ST-segment elevations or depressions, no T-wave inversions, normal intervals. Comparison : No previous EKG for comparison. 10/24/17 10:50 Chest X-ray: Creator : Darrel Purcell MD COMPARISON: 10/17/2017 FINDINGS: LUNGS: No active pulmonary disease. PLEURA: No significant pleural effusion identified. No pneumothorax apparent. CARDIOVASCULAR: Normal. OSSEOUS STRUCTURES: No significant abnormalities. VISUALIZED UPPER ABDOMEN: Normal. OTHER FINDINGS: None. IMPRESSION: No active disease. Troponin positive, decreased from previous. Likely downtrending, will require serial Gracie. Dr. Lyman accepts patient to his service on observation and Dr. Rivera contacted. - Lab Interpretations Lab Results: 10/24/17 09:00 10/24/17 09:00 Lab Results 10/24/17 09:00: Sodium 140, Potassium 4.3, Chloride 102, Carbon Dioxide 27, Anion Gap 15, BUN 21, Creatinine 0.9, Est GFR ( Amer) > 60, Est GFR (Non- Af Amer) > 60, Random Glucose 175 H, Calcium 9.7, Total Bilirubin 1.0, AST 28, ALT 50, Alkaline Phosphatase 74, Total Creatine Kinase 49, Troponin I 0.21 H* D , Total Protein 7.4, Albumin 4.2, Globulin 3.2, Albumin/Globulin Ratio 1.3, Lipase 191 10/24/17 09:00: PT 12.2, INR 1.06, APTT 28.9 10/24/17 09:00: WBC 4.7 D, RBC 5.19, Hgb 15.4, Hct 43.3, MCV 83.4, MCH 29.7, MCHC 35.6, RDW 13.1, Plt Count 165, MPV 9.3, Gran % 65.4, Lymph % (Auto) 24.3, [place] % (Auto) 6.1 H, Eos % (Auto) 4.0, Baso % (Auto) 0.2, Gran # 3.09, Lymph # ( Auto) 1.2, [place] # (Auto) 0.3, Eos # (Auto) 0.2, Baso # (Auto) 0.01 I have reviewed the lab results: Yes - RAD Interpretation Radiology Orders: 10/24/17 08:51 CHEST TWO VIEWS (PA/LAT) [RAD] Stat Private Mortgage Banker Safe: Radiologist - EKG Interpretation Interpreted by ED Physician: Yes Type: 12 lead EKG - Medication Orders Current Medication Orders: Al Hydrox/Mg Hydrox/Simethicone (Maalox Plus 30 Ml) 30 ml PO Q6H PRN PRN Reason: Dyspepsia Aspirin (Aspirin Chewable) 81 mg PO DAILY N[place]EL Atorvastatin Calcium (Lipitor) 40 mg PO DAILY [place] Clopidogrel Bisulfate (Plavix) 75 mg PO DAILY [place] Famotidine (Pepcid) 40 mg PO HS [place] Metformin HCl (Glucophage) 1,000 mg PO BID [place] Sitagliptin Phosphate (Januvia) 100 mg PO DAILY N[place]EL Discontinued Medications Aspirin (Aspirin) 325 mg PO STAT STA Stop: 10/24/17 09:39 Last Admin: 10/24/17 09:42 Dose: 325 mg - Scribe Statement The provider has reviewed the documentation as recorded by the Marnie Carter Provider Scribe Attestation: All medical record entries made by the Marnie were at my direction and personally dictated by me. I have reviewed the chart and agree that the record accurately reflects my personal performance of the history, physical exam, medical decision making, and the department course for this patient. I have also personally directed, reviewed, and agree with the discharge instructions and disposition. Disposition/Present on Arrival - Present on Arrival Any Indicators Present on Arrival: No History of DVT/PE: No History of Uncontrolled Diabetes: No Urinary Catheter: No History of Decub. Ulcer: No History Surgical Site Infection Following: None - Disposition Have Diagnosis and Disposition been Completed?: Yes Diagnosis: Chest pain Disposition: HOSPITALIZED Disposition Time: 09:40 Patient Plan: Observation, Telemetry Condition: FAIR
[2017-10-24 09:13] LABS: BASO # 0.01 K/mm3 (0.0-2.0); BASO % 0.2 % (0.0-3.0); EOS # 0.2 (0.0-0.7); GRAN # 3.09 (1.4-6.5); GRAN % 65.4 % (50.0-68.0); HEMOGLOBIN 15.4 g/dL (14.0-18.0); LYMPH # 1.2 (1.2-3.4); LYMPH % 24.3 % (22.0-35.0); MEAN CELL VOLUME 83.4 fl (80.0-105.0); MEAN CORPUSCULAR HEMOGLOBIN 29.7 pg (25.0-35.0); MEAN CORPUSCULAR HGB CONC 35.6 g/dl (31.0-37.0); MEAN PLATELET VOLUME 9.3 fl (7.0-11.0); MONO # 0.3 (0.1-0.6); MONO % 6.1 % (1.0-6.0); RBC 5.19 10^6/uL (3.5-6.1); RED CELL DISTRIBUTION WIDTH 13.1 % (11.5-14.5); WHITE BLOOD COUNT 4.7 10^3/ul (4.5-11.0)
[2017-10-24 09:26] LABS: INR 1.06 (0.93-1.08); PARTIAL THROMBOPLASTIN TIME 28.9 Seconds (25.1-36.5); PROTHROMBIN TIME 12.2 SECONDS (9.4-12.5)
[2017-10-24 09:39] LABS: ALB/GLOB RATIO 1.3 (1.1-1.8); ALBUMIN 4.2 g/dL (3.0-4.8); ALT/SGPT 50 U/L (7-56); AST/SGOT 28 U/L (17-59); BLOOD UREA NITROGEN 21 mg/dL (7-21); CALCIUM 9.7 mg/dL (8.4-10.5); GFR AFRICAN-AMERICAN > 60; GFR NON-AFRICAN AMERICAN > 60; LIPASE 191 U/L (23-300); TROPONIN I 0.21 ng/mL
--- NOTE | 2017-10-24 10:48 | RAD ---
HISTORY: cp, s/p stents COMPARISON: 10/17/2017 TECHNIQUE: Chest PA and lateral FINDINGS: LUNGS: No active pulmonary disease. PLEURA: No significant pleural effusion identified. No pneumothorax apparent. CARDIOVASCULAR: Normal. OSSEOUS STRUCTURES: No significant abnormalities. VISUALIZED UPPER ABDOMEN: Normal. OTHER FINDINGS: None. IMPRESSION: No active disease.
[2017-10-24] MEDS ORDERED: Alum-Mag Hydrox-Simethicone Susp (30 mL) PO PRN (11:21)
--- NOTE | 2017-10-24 17:46 | HP ---
HISTORY OF PRESENT ILLNESS: The patient is a 52 year old man with a past medical history of CAD s/p multiple stent placement who was discharged 4 days ago from [facility] after presentation with chest pain and underwent cardiac catheterization with placement of COLBY stents to the LAD, circumflex and diagonal lesions who presented with a 1 day history of anterior chest wall pain which he described as burning in nature. The patient was doing well since he was discharged from the hospital. On the day of prior to presentation, he reported a mild burning sensation to his anterior chest wall, which increased in intensity over the following 24 hours. The patient does have a history of GERD but states that his sensation is different from his acid reflux. He denies fevers, chills, rigors, dyspnea, diaphoresis or palpitations associated with his symptoms and furthermore, denies any flu-like symptoms or rash. Upon arrival to the ED, he was noted to be afebrile and hemodynamically stable and initial laboratory studies were unremarkable with the exception of a troponin of 0.21. Of note, on his discharge 3 days ago, his troponin was noted to be 0.67 and this may reflect a downward trajectory from his cardiac catheterization. PAST MEDICAL HISTORY: As per HPI. Also hyperlipidemia,cnw-ebpuchd-yvtzkprj diabetes mellitus, diet- controlled hypertension, and lumbosacral radiculopathy secondary to degenerative disc disease. PAST SURGICAL HISTORY: As per HPI. Also discectomy and laminectomy with spinal fusion. ALLERGIES: NO KNOWN DRUG ALLERGIES. MEDICATIONS: Aspirin 81 mg p.o. daily, Lipitor 40 mg p.o. daily, Plavix 75 mg p.o. daily, Metformin 1000 mg p.o. b.i.d., Januvia 100 mg p.o. daily, and Glipizide 10 mg p.o. b.i.d. FAMILY HISTORY: Noncontributory. SOCIAL HISTORY: The patient reports a former smoking history, but quit several years ago. He reports social alcohol use and denies illicit drug abuse. REVIEW OF SYSTEMS: A 14-point review of systems is negative except as per HPI. PHYSICAL EXAMINATION: VITAL SIGNS: Temperature 98.2, pulse 68, blood pressure 135/79, respiratory rate 18, and oxygen saturation 96% on room air. GENERAL: In no apparent distress. HEENT: PERRL. EOMI. No scleral icterus. No conjunctival pallor. NECK: Supple with full range of motion. No JVD. No bruits. LUNGS: Clear to auscultation. CARDIOVASCULAR: Regular rate and rhythm. Normal S1 and S2. No murmurs. ABDOMEN: Normoactive bowel sounds. Soft, nontender, and nondistended. EXTREMITIES: No edema. NEUROLOGIC: Awake, alert, and oriented x3. No focal motor deficits. LABORATORY DATA: CBC reviewed and unremarkable. CMP reviewed and unremarkable. Troponin 0.21. ASSESSMENT: The patient is a 52 year old man with a past medical history of CAD s/p PCI with COLBY stent placement, hyperlipidemia, NIDDM and diet-controlled hypertension who was recently discharged from [facility] after undergoing cardiac catheterization with multiple stent placement, who presented with a one day history of anterior chest wall pain, which he described as burning in nature. PLAN: 1. Chest pain, rule out ACS. There is a low suspicion for an acute coronary syndrome given the fact that the patient was just recently stented with Dr. Rivera. The troponin obtained on admission likely represents a downward trajectory from his troponins since his most recent discharge. Dr. Rivera has been consulted for further evaluation and recommendations. 2. CAD s/p PCI with multiple stent placement. Resume Aspirin 81 mg p.o. daily , Plavix 75 mg p.o. daily, and Lipitor 40 mg p.o. daily. 3. Hyperlipidemia. Resume Lipitor 40 mg p.o. daily. 4. Xpq-cvpepcm-wgrifnzr diabetes mellitus. Resume Metformin 1000 mg p.o. b.i.d. and Januvia 100 mg p.o. daily. We will monitor fingersticks before meals and at bedtime. 5. Hypertension, diet-controlled, BP remains satisfactory. 6. GERD. We will start the patient on Maalox and Pepcid. 7. Prophylaxis. Continue with Pepcid for GI prophylaxis. DVT prophylaxis is not indicated as the patient is ambulatory. CODE STATUS: Full code. Haresh Lyman MD [facility]
--- NOTE | 2017-10-24 19:31 | CARD ---
APPROVED REPORT EKG Measurement Heart [id number] [place] 196P58 [id number] <Conclusion> Normal sinus rhythm Possible Inferior infarct, age undetermined Abnormal ECG
--- NOTE | 2017-10-24 19:46 | CARD ---
APPROVED REPORT EKG Measurement Heart [id number] [place] 190P60 [id number] <Conclusion> Normal sinus rhythm Normal ECG
[2017-10-25 00:39] VITALS: RESP 20
--- NOTE | 2017-10-25 00:46 | CON ---
DATE: 10/24/2017 HISTORY OF PRESENT ILLNESS: The patient is a 52-year-old male who was recently discharged after multivessel PTCA and stent. He woke up yesterday with epigastric burning, which was on and off. He experienced an episode this morning and presented to the emergency room. PAST MEDICAL HISTORY: The patient's past medical history is notable for diabetes mellitus, hypertension, hypercholesterolemia, and multivessel PTCA and stent in the past. He denies anginal symptoms. SOCIAL HISTORY: The patient does not smoke. REVIEW OF SYSTEMS: 14-point review of systems was reviewed. No other symptoms other than his epigastric burning. PHYSICAL EXAMINATION: VITAL SIGNS: Reveal blood pressure 135/80, heart rates in the 60s. NECK: Negative JVD. LUNGS: Without rales. HEART: S1, S2. EXTREMITIES: Without edema. EKG shows normal sinus rhythm with no acute changes. LABORATORIES: Reveals a troponin that is down to 0.21; it was 0.67 on his previous admission. Glucose is 175, hemoglobin is 15.4. IMPRESSION: 1. Epigastric burning. 2. No evidence for acute coronary syndrome. 3. Status post multivessel percutaneous transluminal coronary angioplasty and stent. 4. Diabetes mellitus. 5. Hypercholesterolemia. 6. Esophagitis versus peptic ulcer disease. 7. Elevated troponins and downward trend is from his coa-EN-xodkhlijh myocardial infarction from his previous admission. PLAN: Given these findings, we will give the patient a trial of IV Protonix. We will continue his aspirin and Plavix. Abdulkadir Rivera MD
[2017-10-25 06:20] VITALS: BP 118/87; PULSE 62; TEMP 98.3; O2SAT 96
[2017-10-25 06:27] LABS: BASO # 0.01 K/mm3 (0.0-2.0); BASO % 0.2 % (0.0-3.0); EOS # 0.3 (0.0-0.7); GRAN # 2.88 (1.4-6.5); GRAN % 57.7 % (50.0-68.0); HEMOGLOBIN 14.8 g/dL (14.0-18.0); LYMPH # 1.4 (1.2-3.4); LYMPH % 28.7 % (22.0-35.0); MEAN CELL VOLUME 83.4 fl (80.0-105.0); MEAN CORPUSCULAR HEMOGLOBIN 29.2 pg (25.0-35.0); MEAN PLATELET VOLUME 9.4 fl (7.0-11.0); MONO # 0.4 (0.1-0.6); MONO % 8.4 % (1.0-6.0); RBC 5.07 10^6/uL (3.5-6.1); RED CELL DISTRIBUTION WIDTH 13.2 % (11.5-14.5)
[2017-10-25 06:48] LABS: ALB/GLOB RATIO 1.3 (1.1-1.8); ALBUMIN 3.8 g/dL (3.0-4.8); ALT/SGPT 40 U/L (7-56); AST/SGOT 23 U/L (17-59); BLOOD UREA NITROGEN 20 mg/dL (7-21); CALCIUM 9.5 mg/dL (8.4-10.5); GFR AFRICAN-AMERICAN > 60; GFR NON-AFRICAN AMERICAN > 60
[2017-10-25 06:55] LABS: TROPONIN I 0.12 ng/mL
[2017-10-25] MEDS ORDERED: Pantoprazole 40 mg EC Tab PO ONE (09:28)
--- NOTE | 2017-10-25 11:02 | PN ---
DATE: 10/25/2017 CARDIOLOGY FOLLOWUP SUBJECTIVE: The patient's symptoms are much improved on Protonix. PHYSICAL EXAMINATION VITAL SIGNS: Blood pressure is 118/87, the heart rates in the 60s. NECK: Negative JVD. LUNGS: Without rales. HEART: Reveals S1 and S2. EXTREMITIES: Without edema. LABORATORY DATA: Troponins on descending trend. IMPRESSION: 1. Resolution of his epigastric burning with Protonix. 2. History of recent multivessel percutaneous transluminal coronary angioplasty and stent. 3. History of recent non-ST elevation myocardial infarction from his previous admission. 4. No evidence for acute coronary syndrome on this admission. PLAN: Given these findings, the patient will go home on Protonix today. He can be discharged. We will change his medication from Plavix to SVN given his need for his Protonix. Followup and instructions have been given to the patient in detail. Abdulkadir Rivera MD
--- NOTE | 2017-10-26 08:27 | PN ---
SUBJECTIVE: The patient was seen and examined at bedside on telemetry jaramillo and no acute events overnight. He remains afebrile, hemodynamically stable and chest pain free. This morning he feels well and denies any recurrence of his presenting symptoms and states that he would like to go home. OBJECTIVE: VITAL SIGNS: Temperature 98.3, pulse 62, blood pressure 118/87, respiratory rate 20, oxygen saturation 96% on room air. GENERAL: In no apparent distress. HEENT: PERRL. EOMI. No scleral icterus. No conjunctival pallor. NECK: Supple with full range of motion. No JVD, no bruits. LUNGS: Clear to auscultation. CARDIOVASCULAR: Regular rate and rhythm. Normal S1 and S2. No murmurs. ABDOMEN: Normoactive bowel sounds. Soft, nondistended. Mild tenderness to palpation to the epigastrium EXTREMITIES: No edema. NEUROLOGIC: Awake, alert, and oriented times 3. No focal motor deficits. LABORATORY DATA: CBC reviewed and unremarkable. CMP reviewed and unremarkable. Troponin 0.12 ( trending down from 0.21). ASSESSMENT: The patient is a 52 year old man with a past medical history of CAD s/p PCI with COLBY stent placement, hyperlipidemia, NIDDM and diet-controlled hypertension who was recently discharged from [facility] after undergoing cardiac catheterization with multiple stent placement who presented with a 1 day history of anterior chest wall pain and epigastric burning. PLAN 1. Chest pain, no evidence of acute coronary syndrome. Troponins remain unremarkable and trending favorably from his prior discharge. The patient remains chest pain free. 2. Gastritis. The patient reports resolution of symptoms with administration of antacids. 3. CAD s/p PCI with multiple stent placements. Continue Aspirin 81 mg p.o. daily, Plavix 75 mg p.o. daily and Lipitor 40 mg p.o. daily. 4. Hyperlipidemia. Continue Lipitor 40 mg p.o. daily. 5. Usq-kpbtgzo-imenloqco diabetes mellitus. Continue Metformin 1000 mg p.o. b.i.d. and Januvia 100 mg p.o. daily. 6. Hypertension, diet controlled. BP remains satisfactory. 7. Prophylaxis. Continue Pepcid for GI prophylaxis. DVT prophylaxis not indicated as the patient is ambulatory. 8. Disposition. The patient for discharge home today. CODE STATUS: Full code. Haresh Lyman MD [facility] # [id number] [facility]
--- NOTE | 2017-10-27 07:27 | DS ---
ADMITTING DIAGNOSES: Chest pain, rule out acute coronary syndrome. DISCHARGE DIAGNOSIS: Acute gastritis. SECONDARY DIAGNOSES: Coronary artery disease, status post percutaneous coronary intervention with stent placement; hyperlipidemia; type 2 diabetes mellitus; gastroesophageal reflux disease. CONSULTATIONS: Dr. Rivera (Cardiology). PROCEDURES: None. IMAGING STUDIES: Chest x-ray demonstrated no acute pathology. HISTORY OF PRESENT ILLNESS: The patient is a 52-year-old male with past medical history of CAD, status post PCI with multiple stent placement who is discharged four days ago from [facility] after presentation with chest pain and underwent cardiac catheterization with placement of COLBY stent to the LAD, circumflex and diagonal lesions, who presented with a one-day history of anterior chest wall pain, which he described as burning in nature. The patient was doing well since his discharge from the hospital. However, on the day prior to presentation, he reported mild burning sensation to the anterior chest wall, which increased in intensity over the following 24 hours. He denied fevers, chills, rigors, dyspnea, diaphoresis or palpitations associated with the symptoms and furthermore, denied any flu-like symptoms or rash. Given his underlying cardiac history, he opted for ED evaluation. Upon arrival to the ED, he was noted to be afebrile, hemodynamically stable and initial laboratory studies were unremarkable. He did have a troponin of 0.21; however, this was noted to be trending down from his last troponin of 0.67, which was obtained on his prior hospitalization three days ago and thus, reflected a downward trajectory. The patient was then admitted to the Telemetry [facility] for observation to rule out ACS. HOSPITAL COURSE: Upon admission to the Telemetry [facility], the patient was started on antacids consisting of Maalox and Pepcid. Over the following 24 hours, he was noted to have resolution of symptoms. He was reevaluated by Dr. Rivera of Cardiology and it was felt that his presentation was likely due to acute gastritis with no evidence of acute coronary syndrome and as such, he was cleared for discharge to home. CONDITION: Good, improved. DISPOSITION: Home. DISCHARGE MEDICATIONS: Aspirin 81 mg p.o. daily, Plavix 75 mg p.o. daily, Lipitor 40 mg p.o. daily, metformin 1000 mg p.o. b.i.d., Januvia 100 mg p.o. daily, glipizide 10 mg p.o. b.i.d. and Protonix 40 mg p.o. daily. DISCHARGE INSTRUCTIONS: Patient was advised that if he has any recurrence of the symptoms, to present to his PMD or to the nearest ED immediately. FOLLOWUP: Patient will follow up with his PMD within one week of discharge. Patient will follow up with Dr. Rivera as scheduled. Haresh Lyman MD
== END 2017-10-25 10:02 | disposition home or self-care (01) ==
LOC: ED 08:18 → ERH 11:05 → 2RNO 12:22
PROVIDERS: ADMIT Student in an Organized Health Care Education/Training Program; ATTEND Student in an Organized Health Care Education/Training Program
DX: R07.89 Other chest pain (principal); I10 Essential (primary) hypertension; K29.70 Gastritis, unspecified, without bleeding; E11.9 Type 2 diabetes mellitus without complications; M51.17 Intervertebral disc disorders with radiculopathy, lumbosacral region; E78.00 Pure hypercholesterolemia, unspecified; K21.9 Gastro-esophageal reflux disease without esophagitis; I25.10 Atherosclerotic heart disease of native coronary artery without angina pectoris; I25.2 Old myocardial infarction; Z79.84 Long term (current) use of oral hypoglycemic drugs; Z95.5 Presence of coronary angioplasty implant and graft; Z79.82 Long term (current) use of aspirin; Z87.891 Personal history of nicotine dependence
CPT/HCPCS: 36415; 71046; 80053; 82550; 82948; 83690; 84484; 85025; 85610; 85730; 93005; 99284; C9113; G0378

== ENCOUNTER 2017-12-25 21:14 | Observation (INO) | payer BC ==
[2017-12-25 21:14] VITALS: BMI 27.3
[2017-12-25 22:22] LABS: BASO # 0.02 K/mm3 (0.0-2.0); BASO % 0.4 % (0.0-3.0); EOS # 0.3 (0.0-0.7); EOS % 5.3 % (1.5-5.0); GRAN # 2.55 (1.4-6.5); GRAN % 49.9 % (50.0-68.0); HEMOGLOBIN 14.8 g/dL (14.0-18.0); LYMPH % 38.7 % (22.0-35.0); MEAN CORPUSCULAR HGB CONC 35.3 g/dl (31.0-37.0); MEAN PLATELET VOLUME 9.1 fl (7.0-11.0); MONO # 0.3 (0.1-0.6); MONO % 5.7 % (1.0-6.0); RBC 5.11 10^6/uL (3.5-6.1); RED CELL DISTRIBUTION WIDTH 13.3 % (11.5-14.5); WHITE BLOOD COUNT 5.1 10^3/ul (4.5-11.0)
[2017-12-25 22:33] LABS: ALB/GLOB RATIO 1.6 (1.1-1.8); ALBUMIN 4.2 g/dL (3.0-4.8); ALT/SGPT 37 U/L (7-56); AST/SGOT 26 U/L (17-59); BLOOD UREA NITROGEN 23 mg/dL (7-21); CALCIUM 9.5 mg/dL (8.4-10.5); GFR AFRICAN-AMERICAN > 60; GFR NON-AFRICAN AMERICAN > 60
--- NOTE | 2017-12-25 22:38 | ED PDOC ---
Arrival/HPI - General Chief Complaint: Chest Pain Time Seen by Provider: 12/25/17 21:32 - History of Present Illness Narrative History of Present Illness (Text): 12/25/17 22:36 Patient is a 52 year old male whose past medical history includes diabetes mellitus, CAD, hypercholesterolemia, ex smoker, 3 coronary stent placements on and 10/20/17, who presents to the Emergency department complaining of intermittent left sided chest pain which started yesterday. Patient describes his chest pain as sharp and non-radiating, which lasts about 10 minutes before resolving. Patient has taken Aspirin and Plavix. Patient denies any shortness of breath, fever, chills, or other symptoms at this time. PMD: Dr.Adrian Lyman Senior Java Architect: Time/Duration: 24 hours (Yesterday 12/24/17) Symptom Course: Intermittent Quality: Stabbing Past Medical History - Infectious Disease Hx of Infectious Diseases: None - Tetanus Immunization Tetanus Immunization: Unknown - Cardiac Hx TN: Yes Other/Comment: Cardiac stent 1 2004. Cardiac stent 2 2010. Cardiac stent 2 October 19. Cardiac stent 1 October 20. 6 stents total as per pt - Pulmonary Hx Respiratory Disorders: Yes Hx Sleep Apnea: Yes - Neurological Hx Neurological Disorder: No - HEENT Hx HEENT Disorder: Yes (wears glasses) - Renal Hx Renal Disorder: No - Endocrine/Metabolic Hx Diabetes Mellitus Type 2: Yes - Hematological/Oncological Hx Blood Disorders: No Hx Anemia: No (pt denies) - Integumentary Hx Dermatological Disorder: No - Musculoskeletal/Rheumatological Hx Arthritis: Yes Hx Back Pain: Yes Hx Falls: Yes Hx Herniated Disk: Yes - Gastrointestinal Hx Gastrointestinal Disorders: Yes Hx Gall Bladder Disease: Yes Hx Gastroesophageal Reflux: Yes Other/Comment: appendix, gall bladder removed - Genitourinary/Gynecological Hx Genitourinary Disorders: No - Psychiatric Hx Anxiety: Yes Hx Emotional Abuse: No Hx Panic Disorder: Yes Hx Physical Abuse: No Hx Substance Use: No - Surgical History Hx Appendectomy: Yes Hx Cardiac Catheterization: Yes Hx Cholecystectomy: Yes Hx Coronary Stent: Yes Other/Comment: Back surgery.Lumbar fusion - Anesthesia Hx Anesthesia: Yes Hx Anesthesia Reactions: No Hx Malignant Hyperthermia: No - Suicidal Assessment Feels Threatened In Home Enviroment: No Family/Social History - Physician Review Nursing Documentation Reviewed: Yes Family/Social History: No Known Family HX Smoking Status: Former Smoker Hx Alcohol Use: No Hx Substance Use: No Hx Substance Use Treatment: No Allergies/Home Meds Allergies/Adverse Reactions: Allergies No Known Allergies Allergy (Verified 10/24/17 08:32) Home Medications: Home Meds Medication Instructions Recorded Confirmed Metformin HCl 1,000 mg PO BID 04/25/12 12/25/17 Aspirin [Ecotrin] 81 mg PO DAILY 10/17/17 12/25/17 Empagliflozin [Jardiance] 25 mg PO DAILY 10/17/17 12/25/17 Glipizide [Glipizide ER] 10 mg PO BID 10/17/17 12/25/17 SITagliptin [Januvia] 100 mg PO DAILY 10/17/17 12/25/17 Clopidogrel [Plavix] 75 mg PO DAILY 11/30/17 12/25/17 Omeprazole 20 mg PO DAILY 11/30/17 12/25/17 Review of Systems - Physician Review All systems were reviewed & negative as marked: Yes - Review of Systems Constitutional: absent: Fevers, Night Sweats Respiratory: absent: SOB Cardiovascular: Chest Pain Physical Exam Vital Signs Temp Pulse Resp BP Pulse Ox 12/26/17 00:53 98.1 F 78 17 138/72 98 12/26/17 00:01 69 17 146/79 96 12/25/17 21:27 97.9 F 57 L 18 154/79 H 97 Temperature: Afebrile Blood Pressure: Hypertensive Pulse: Bradycardic Respiratory Rate: Normal Mental Status: Positive for: Alert and Oriented X 3 - Systems Exam Head: Present: Atraumatic, Normocephalic Pupils: Present: PERRL Extroacular Muscles: Present: EOMI Conjunctiva: Present: Normal Mouth: Present: Moist Mucous Membranes Neck: Present: Normal Range of Motion Respiratory/Chest: Present: Clear to Auscultation, Good Air Exchange. No: Respiratory Distress, Accessory Muscle Use Cardiovascular: Present: Regular Rate and Rhythm, Normal S1, S2. No: Murmurs Abdomen: No: Tenderness, Distention, Peritoneal Signs Back: Present: Normal Inspection Upper Extremity: Present: Normal Inspection. No: Cyanosis, Edema Lower Extremity: Present: Normal Inspection. No: Edema Neurological: Present: GCS=15, CN II-XII Intact, Speech Normal Skin: Present: Warm, Dry, Normal Color. No: Rashes Psychiatric: Present: Alert, Oriented x 3, Normal Insight, Normal Concentration Medical Decision Making ED Course and Treatment: 12/26/17 00:10 Impression: Patient is a 52 year old male with intermittent chest pains. Differential Diagnosis included but are not limited to: Chest pain, rule out ACS Plan: --EKG --urinalysis --chest X-ray --Aspirin 162mg -- Reassess and disposition Prior Visits: Notes and results from previous visits were reviewed. Progress Notes: EKG NSR at 68 bpm with incomplete RBBB; no ST elevations, nl intervasl, which is similar to 10/24/17. Interpreted by me. CXR normal. Case discussed with Dr. Haresh Lyman who agrees to place on telemetry observation. Dr. Rivera is patient's emergency telecommunications dispatcher. Consult placed. - Lab Interpretations Lab Results: 12/25/17 21:52 12/25/17 21:52 Lab Results 12/25/17 21:52: Sodium 144, Potassium 4.0, Chloride 104, Carbon Dioxide 26, Anion Gap 18, BUN 23 H, Creatinine 0.9, Est GFR ( Amer) > 60, Est GFR ( Non-Af Amer) > 60, Random Glucose 146 H, Calcium 9.5, Magnesium 2.0, Total Bilirubin 0.6, AST 26, ALT 37, Alkaline Phosphatase 84, Lactate Dehydrogenase 367, Total Creatine Kinase 106, Troponin I < 0.01 D, Total Protein 7.0, Albumin 4.2, Globulin 2.7, Albumin/Globulin Ratio 1.6 12/25/17 21:52: WBC 5.1, RBC 5.11, Hgb 14.8, Hct 41.9 L, MCV 82.0, MCH 29.0, MCHC 35.3, RDW 13.3, Plt Count 184, MPV 9.1, Gran % 49.9 L, Lymph % (Auto) 38.7 H, [place] % (Auto) 5.7, Eos % (Auto) 5.3 H, Baso % (Auto) 0.4, Gran # 2.55, Lymph # (Auto) 2.0, [place] # (Auto) 0.3, Eos # (Auto) 0.3, Baso # (Auto) 0.02 - RAD Interpretation Radiology Orders: 12/25/17 21:58 CHEST PORTABLE [RAD] Stat - Medication Orders Current Medication Orders: Discontinued Medications Aspirin (Aspirin Chewable) 162 mg PO STAT STA Stop: 12/25/17 23:02 Last Admin: 12/25/17 23:07 Dose: 162 mg - Scribe Statement The provider has reviewed the documentation as recorded by the Scribe Bhargav Otero Provider Scribe Attestation: All medical record entries made by the Scribe were at my direction and personally dictated by me. I have reviewed the chart and agree that the record accurately reflects my personal performance of the history, physical exam, medical decision making, and the department course for this patient. I have also personally directed, reviewed, and agree with the discharge instructions and disposition Disposition/Present on Arrival - Present on Arrival Any Indicators Present on Arrival: No History of DVT/PE: No History of Uncontrolled Diabetes: No Urinary Catheter: No History of Decub. Ulcer: No History Surgical Site Infection Following: None - Disposition Have Diagnosis and Disposition been Completed?: Yes Diagnosis: Chest pain Disposition: HOSPITALIZED Disposition Time: 22:53 Patient Plan: Admission, Observation Patient Problems: Current Active Problems Problem Status Onset Chest pain Acute Condition: FAIR
[2017-12-25 22:46] LABS: TROPONIN I < 0.01 ng/mL
[2017-12-26 03:43] VITALS: RESP 18
[2017-12-26 08:08] VITALS: O2SAT 96
--- NOTE | 2017-12-26 09:07 | RAD ---
HISTORY: chest pain COMPARISON: 10/24/2017 FINDINGS: LUNGS: No active pulmonary disease. PLEURA: No significant pleural effusion identified, no pneumothorax apparent. CARDIOVASCULAR: Normal. OSSEOUS STRUCTURES: No significant abnormalities. VISUALIZED UPPER ABDOMEN: Normal. OTHER FINDINGS: None. IMPRESSION: No active disease.
--- NOTE | 2017-12-26 10:12 | HP ---
HISTORY OF PRESENT ILLNESS: The patient is a 52 year old man with a past medical history of CAD s/p PCI with multiple stent placement, hyperlipidemia and NIDDM who presented for evaluation of a 3 day history of substernal and left-sided chest pain. The patient reports that he was in his usual state of health until 3 days prior to presentation to the ED when he experienced 3 episodes of left-sided, stabbing chest wall pain. The patient denied dyspnea or palpitations associated with the symptoms and furthermore denied any radiation of the pain. He states that his initial episode lasted for approximately 5 minutes before resolving spontaneously. Over the following 48 hours he noticed increasing frequency and intensity of his chest discomfort and given his underlying cardiac history, he opted for ED evaluation. Of note, the patient had a nuclear stress test performed on 11/30/2017 which was negative. On arrival to the ED he was found to be afebrile and hemodynamically stable and with unremarkable laboratory studies including a troponin level. Given his underlying cardiac history, he was admitted to the telemetry [facility] for observation and to cycle cardiac enzymes. PAST MEDICAL HISTORY: As per HPI, also GERD and lumbosacral radiculopathy secondary to degenerative disk disease. PAST SURGICAL HISTORY: As per HPI, also diskectomy and laminectomy with spinal fusion. ALLERGIES: NKDA. MEDICATIONS: Aspirin 81 mg p.o. daily, Plavix 75 mg p.o. daily, Lipitor 40 mg p.o. daily, Metformin 1000 mg p.o. b.i.d., Januvia 100 mg p.o. daily, Glipizide 10 mg p.o. b.i.d. and Protonix 40 mg p.o. daily. FAMILY HISTORY: Noncontributory. SOCIAL HISTORY: The patient reports a former smoking history but quit several years ago. He reports social alcohol use and denies illicit drug abuse. REVIEW OF SYSTEMS: A 14-point review of systems is negative except as per HPI. PHYSICAL EXAMINATION: VITAL SIGNS: Temperature 97.8, pulse 65, blood pressure 116/74, respiratory rate 18, oxygen saturation 96% on room air. GENERAL: No apparent distress. HEENT: PERRL, EOMI. No scleral icterus. No conjunctival pallor. NECK: Supple with full range of motion. No JVD. No bruits. LUNGS: Clear to auscultation. CARDIOVASCULAR: Regular rate and rhythm. Normal S1 and S2. No murmurs. ABDOMEN: Normoactive bowel sounds. Soft, nontender and nondistended. EXTREMITIES: No edema. NEUROLOGIC: Awake, alert and oriented x 3. No focal motor deficits. LABORATORY DATA: CBC reviewed and unremarkable. CMP reviewed and unremarkable. Troponin less than 0.01. ASSESSMENT: The patient is a 52 year old man with a past medical history of CAD s/p PCI with multiple stent placement, hyperlipidemia and NIDDM who presented for evaluation of a 3 day history of progressively worsening substernal and left- sided chest pain and who was admitted to the telemetry [facility] to rule out acute coronary syndrome. PLAN: 1. Chest pain, rule out ACS. There is a low clinical suspicion for an acute coronary syndrome given the fact that the patient had a negative stress test approximately 3 weeks ago. His initial troponin level is negative. We will cycle a second set of cardiac enzymes and if negative, the patient may likely be discharged to home with outpatient followup. Dr. Rivera of Cardiology has been consulted for further evaluation and recommendations. 2. CAD s/p PCI with multiple stent placement. Resume Aspirin 81 mg p.o. daily , Plavix 75 mg p.o. daily and Lipitor 40 mg p.o. daily. 3. Hyperlipidemia. Resume Lipitor 40 mg p.o. daily. 4. NIDDM. Resume Metformin 1000 mg p.o. b.i.d., Januvia 100 mg p.o. daily and Glipizide 10 mg p.o. b.i.d. Continue to monitor fingersticks before every meal and at bedtime. 5. GERD. We will start Pepcid 20 mg p.o. daily. 6. Lumbosacral radiculopathy secondary to degenerative disk disease. 7. Prophylaxis. Continue with Pepcid for GI prophylaxis. DVT prophylaxis is not indicated as the patient is ambulatory. CODE STATUS: Full code. Haresh Lyman MD [facility]ITAL[facility]ri[facility]
--- NOTE | 2017-12-26 10:24 | CARD ---
APPROVED REPORT EKG Measurement Heart [id number] <Conclusion> Normal sinus rhythm RVCD Small q waves 2,3,F No change
[2017-12-26 12:25] VITALS: BP 110/65; PULSE 63; TEMP 97.7
--- NOTE | 2017-12-26 20:50 | CON ---
DATE: REASON FOR CONSULTATION: Chest pain. HISTORY OF PRESENT ILLNESS: The patient is 52-year-old male who had a history of multiple coronary stenting in the past. The most recent ones were on 10/19 and 10/20 and the patient has been on aspirin and Plavix daily faithfully since then. The patient presents with chest discomfort that he describes as sharp, poking, left inframammary. The patient attributed the chest pain to the recent use of Viagra. The patient denies any dizziness and the patient is not on nitrate therapy. At this time, the patient is chest pain free. SOCIAL HISTORY The patient quit smoking 15 years ago. REVIEW OF SYSTEMS No nausea or vomiting. No associated diaphoresis, shortness of breath or dizziness at the time of chest pain. MEDICATIONS: Aspirin 81 mg once a day, Glucophage 1 g twice a day, glipizide 10 mg twice a day, Januvia 100 mg once a day, Lipitor 40 mg once a day, Plavix 75 mg once a day. PHYSICAL EXAMINATION: GENERAL: The patient is middle-aged male who does not appear to be in any distress. VITAL SIGNS: Blood pressure 116/74, heart rate 65, temperature 97.8, respirations 18. HEENT: Normocephalic. NECK: No JVD. CHEST: Clear. HEART: S1, S2 regular. ABDOMEN: Soft. EXTREMITIES: No edema. LABORATORY DATA: CBC: WBC 5.1, hemoglobin 14.8, hematocrit 41.9, platelet count 184,000. SMA-7: Sodium 144, potassium 4, chloride 104, CO2 26, glucose 146, being 23, creatinine 0.9. Two sets of troponins are negative. EKG revealed normal sinus rhythm, poor R wave progression. Chest x-ray was unremarkable except for borderline cardiomegaly. ASSESSMENT: 1. Atypical chest pain, myocardial infarction was ruled out. 2. Diabetes mellitus. 3. History of recent coronary stenting on and 10/20/2017, specifically on 10/20. The patient underwent successful PTCA and stent to critically stenosed mid LAD. At that time, coronary angiography revealed patent stent in circumflex artery and the diagonal vessel, that was placed a day earlier. A recent Myoview stress test done last month revealed an essentially normal SPECT myocardial perfusion study, fixed inferior defect most likely diaphragmatic attenuation with normal gated wall motion and thickening of the left ventricle. CONDITIONS: The patient can be discharged and his current medications include aspirin, Lipitor, Plavix, Glucophage and Glucotrol. Prior to discharge, stat D-dimer will be obtained. Sp Rose MD
--- NOTE | 2017-12-27 02:06 | DS ---
ADMITTING DIAGNOSIS: Chest pain, rule out acute coronary syndrome. DISCHARGE DIAGNOSIS: Coronary artery disease. SECONDARY DIAGNOSES: Hypertension, NIDDM, hyperlipidemia, GERD and lumbosacral radiculopathy secondary to degenerative disk disease. CONSULTATION: Dr. Rivera (Cardiology). IMAGING STUDIES: Chest x-ray demonstrated no active disease. PROCEDURES: None. HISTORY OF PRESENT ILLNESS: The patient is a 52 year old man with a past medical history of CAD s/p PCI with multiple stent placement, hyperlipidemia and NIDDM who presented for evaluation of a 3 day history of substernal and left-sided chest pain. He reported that he was in his usual state of health until 3 days prior to presentation when he experienced 3 episodes of left-sided, stabbing chest wall pain. He denied dyspnea, palpitations, diaphoresis or radiation of pain associated with his symptoms. Since his initial episode he has been experiencing increasing frequency and intensity in his chest discomfort and due to his underlying cardiac history he opted for ED evaluation. On arrival to the ED he was found to be afebrile and hemodynamically stable and with a negative initial troponin level. Given his cardiac history he was admitted to the telemetry [facility] for observation so as to cycle cardiac enzymes. Of note, the patient had nuclear stress test performed on 11/30/2017 which was negative. HOSPITAL COURSE: The patient was admitted to the telemetry [facility] and resumed on his home medications. Cardiac enzymes were cycled for 2 sets and were both negative. Due to his recent cardiac catheterization and negative stress test, in addition to 2 negative cardiac enzymes, the patient was cleared for discharge to home by Dr. Rivera. CONDITION: Good, improved. DISPOSITION: Home. DISCHARGE MEDICATIONS: Aspirin 81 mg p.o. daily, Plavix 75 mg p.o. daily, Lipitor 40 mg p.o. daily, Metformin 1000 mg p.o. b.i.d., Januvia 100 mg p.o. daily, Glipizide 10 mg p.o. b.i.d. and Protonix 40 mg p.o. daily. DISCHARGE INSTRUCTIONS: The patient was advised that if he has any recurrence of his symptoms to present to his PMD or the nearest ED immediately. FOLLOWUP: The patient will follow up with his PMD within 1 week of discharge. The patient will follow up with Dr. Rivera as scheduled. Haresh Lyman MD [facility]
== END 2017-12-26 12:31 | disposition home or self-care (01) ==
LOC: ED 21:14 → ERH 22:53 → 2RNO 12-26 00:51
PROVIDERS: ADMIT Student in an Organized Health Care Education/Training Program; ATTEND Student in an Organized Health Care Education/Training Program
DX: I25.10 Atherosclerotic heart disease of native coronary artery without angina pectoris (principal); I10 Essential (primary) hypertension; K21.9 Gastro-esophageal reflux disease without esophagitis; M51.17 Intervertebral disc disorders with radiculopathy, lumbosacral region; E78.5 Hyperlipidemia, unspecified; E78.00 Pure hypercholesterolemia, unspecified; E11.9 Type 2 diabetes mellitus without complications; Z95.5 Presence of coronary angioplasty implant and graft; Z87.891 Personal history of nicotine dependence; Z79.82 Long term (current) use of aspirin; Z79.84 Long term (current) use of oral hypoglycemic drugs
CPT/HCPCS: 36415; 71045; 80053; 82550; 82948; 83615; 83735; 84484; 85025; 85378; 93005; 99285; G0378